=== PATIENT | male | born 1995 | race Caucasian/White ===

== ENCOUNTER 2023-07-29 18:12 | Emergency (ER) | payer BC, SELFPAY ==
--- NOTE | ~2023-07-29 | CT_ITS ---
EXAMINATION: CT brain wo con DATE: 07/29/2023 20:08 INDICATION: Seizure. TECHNIQUE: Computed tomography (CT) of the head was performed without intravenous contrast. The mA wa s adjusted according to patient size. Iterative reconstruction technique was employed. The dose-lengt h product was 681.00 mGy-cm. COMPARISON: None FINDINGS: There is no intracranial hemorrhage, acute infarction, or abnormal intracranial mass lesion . The ventricles are normal in size. There is mild mucosal thickening in the paranasal sinuses. The m astoid air cells are normal. The orbits are normal. Partially visualized is a 1.7 x 1.0 cm cyst in ri ght cheek. IMPRESSION: 1. Normal brain. Reviewed, dictated and finalized at location E. IMPRESSION: 1. Normal brain.
--- NOTE | ~2023-07-29 | CT_ITS ---
EXAMINATION: CT abdomen pelvis w con DATE: 07/29/2023 18:58 INDICATION: Generalized abdominal pain. Nausea, vomiting, and diarrhea. TECHNIQUE: Computed tomography (CT) of the abdomen and pelvis was performed with 100 mL Omnipaque 350 intravenous contrast. Automated exposure control and iterative reconstruction technique were employe d. The dose-length product was 387.78 mGy-cm. COMPARISON: None. FINDINGS: The visualized portions of the lung bases are clear without pneumonia or pleural effusion. The heart size is normal. No pericardial effusion. The liver, gallbladder, spleen, pancreas, adrenal glands, and kidneys are normal. There are no dilated loops of bowel. The appendix is normal. There ar e no pathologically enlarged lymph nodes. There is no free intraperitoneal fluid. There is mild lumba r spondylosis. IMPRESSION: 1. No etiology for the patient's symptoms. Reviewed, dictated and finalized at location E.
[2023-07-29 18:20] VITALS: BP 130/76; PULSE 62; RESP 12; TEMP 36.5; O2SAT 100
--- NOTE | 2023-07-29 18:28 | ED.NAVMDI ---
HPI - Nausea/Vomiting/Diarrhea General Chief complaint: Nausea/Vomiting/Diarrhea Stated complaint: vomiting Time Seen by Provider: 07/29/23 18:16 History of Present Illness HPI Narrative: 28-year-old male presents to emergency department for generalized abdominal pain, nausea, vomiting and diarrhea that started at 4:00 a.m. this morning. Patient's is at bedside to assist with history. States she and her daughter currently sick with the same illness. The patient is reporting diffuse abdominal tenderness, multiple episodes of soft and watery stools today multiple episodes of emesis. Denies known fever, cough or congestion, dysuria or hematuria. Last bowel movement was prior to arrival. Endorses a prior history of a hernia repair otherwise no abdominal surgeries. Patient and are also concerned the patient has been having seizures throughout the day. Patient endorses a remote history of seizures. States he was evaluated by a neurologist many years ago and was on an unknown antiepileptic but discontinued this 6 years ago given he has not has seizure in 6 years. Patient and state that the patient has intermittent shakiness throughout his body. He does not lose consciousness, no tongue biting or incontinence, no postictal state. Denies alcohol or drug use, recent head injury or trauma. Nursing staff witnessed a seizure after bringing the patient back into the room. States they saw the patient flex his knees multiple times while standing, lasted a few seconds then the patient laid on the exam bed. No LOC, no postictal phase. Related Data Allergies Allergy/AdvReac Type Severity Reaction Status Date / Time No Known Allergies Allergy Unverified 11/23/12 11:15 Review of Systems Review of Systems: CONSTITUTIONAL: Denies fever, chills, or sweats. EYES: Denies visual changes, redness, or discharge. ENT: Denies rhinorrhea, congestion, sore throat, or otalgia. CARDIOVASCULAR: Denies chest pain, palpitations, or edema. RESPIRATORY: Denies cough or dyspnea. GASTROINTESTINAL: Denies abdominal pain, nausea, vomiting, or diarrhea. GENITOURINARY: Denies dysuria or hematuria. SKIN: Denies rash or itching. MUSCULOSKELETAL: Denies back pain, joint pain, or myalgia. NEUROLOGIC: See HPI PSYCHIATRIC: Denies anxiety or depression. Exam Narrative: GENERAL: Well-appearing, well-nourished, and in no acute distress. HEAD: Normocephalic, atraumatic. EYES: PERRLA and EOMI. ENT: Nares clear, no rhinorrhea or epistaxis. Mucous membranes moist. NECK: Supple. CHEST: Clear to auscultation. No respiratory distress. HEART: Regular rate and rhythm. No murmur heard. Normal peripheral pulses. ABDOMEN: Soft, nontender, nondistended, normal active bowel sounds. No rebound, guarding rigidity. No CVA tenderness. EXTREMITIES: Normal range of motion. No edema. SKIN: Warm, dry, no rash. NEURO: No focal deficits. Alert and oriented x3. Cranial nerves 2-12 intact. Strength 5/5 BUE and BLE. Sensation intact throughout. Normal [id number]. No pronator drift. Course Vital Signs Vital signs: Vital Signs Temperature 97.7 F 07/29/23 18:20 Pulse Rate 62 07/29/23 18:20 Respiratory Rate 12 07/29/23 18:20 Blood Pressure 130/76 07/29/23 18:20 Pulse Oximetry 100 07/29/23 18:20 Oxygen Delivery Room Air 07/29/23 18:20 Temperature 97.7 F 07/29/23 18:20 Pulse Rate 79 07/29/23 19:14 Respiratory Rate 17 07/29/23 19:14 Blood Pressure 126/67 07/29/23 19:14 Pulse Oximetry 99 07/29/23 19:14 Oxygen Delivery Room Air 07/29/23 18:20 MDM - Nausea/Vomiting/Diarrhea MDM Narrative Medical decision making narrative: 28-year-old male with a reported history of remote seizures presents to emergency department for diffuse abdominal pain, nausea vomiting, diarrhea and reported seizures throughout the day. See HPI for further history. Triage vital stable. Patient is well-appearing, nontoxic on exam. Abdomen is soft and
[2023-07-29 18:31] LABS: Basophils Percent Auto 0.2 % (0.2-1.2); Hematocrit 46.6 % (42.0-52.0); Hemoglobin 16.2 g/dL (14.0-18.0); Immature Granulocyte Absolute 0.05 K/mm3 (0.00-0.031); Immature Granulocyte Percent A 0.3 % (0-0.5); Lymphocytes Absolute Auto 0.38 K/mm3 (0.9-3.2); Lymphocytes Percent Auto 2.3 % (18.3-44.2); Mean Corpuscular HGB Conc 34.8 g/dl (32-36); Mean Corpuscular Hemoglobin 30.7 pg (26-34); Mean Corpuscular Volume 88.3 fl (80-100); Mean Platelet Volume 9.6 fl (7.4-10.4); Monocytes Absolute Auto 0.7 K/mm3 (0.1-0.6); Neutrophils Absolute Auto 15.2 K/mm3 (1.3-6.7); Neutrophils Percent Auto 93.2 % (45.5-73.1); Platelet Count Result 290 k/mm3 (150-375); Red Blood Count 5.28 M/mm3 (4.6-6.20); Red Cell Distribution Width 12.5 % (11.5-14.5); White Blood Count 16.3 K/mm3 (4.5-10.0)
[2023-07-29] MEDS: SODIUM CHLORIDE 0.9% IV 1,000 ML 999 ML IV CONT (18:37)
[2023-07-29] MEDS: ONDANSETRON INJ 4 MG/2 ML VIAL IV PUSH (18:37)
[2023-07-29] MEDS: FAMOTIDINE 20 MG/2 ML VIAL IV PUSH (18:37)
[2023-07-29 18:41] LABS: Alanine Aminotransferase 31 U/L (6-50); Albumin Level 5.2 g/dL (3.5-5.1); Alkaline Phosphatase 95 U/L (38-126); Anion Gap 14 mmol/L (4-12); Aspartate Amino Transferase 30 U/L (17-59); Bilirubin,Total 0.9 mg/dL (0.2-1.3); Blood Urea Nitrogen 18 mg/dL (9-20); Carbon Dioxide 23 mmol/L (22-30); Chloride 105 mmol/L (98-107); Estimated CRCL calculation 99 ml/min; Estimated Glomerular Filt Rate > 60; Glucose 141 mg/dL (65-110); Lipase 38 U/L (23-300); Potassium 3.9 mmol/L (3.4-5.0); Sodium 142 mmol/L (137-145)
[2023-07-29 19:00] LABS: Lactic Acid Reflex 2.2 mmol/L (0.7-2.0)
[2023-07-29 19:04] LABS: Creatine Kinase 187 U/L (55-170); Magnesium 2.1 mg/dL (1.6-2.3)
[2023-07-29 19:14] VITALS: BP 126/67; PULSE 79; RESP 17; O2SAT 99
[2023-07-29 19:27] LABS: Influenza A QL RT-PCR Negative (Negative); Influenza B QL RT-PCR Negative (Negative); RSV RNA, RT-PCR Negative (Negative); SARS-CoV-2 RNA PCR Negative (Negative)
[2023-07-29 20:59] LABS: Appearance Urine Clear (Clear); Bilirubin Urine Negative (Negative); Blood Urine Trace (Negative); Color Urine Light Yellow (Yellow); Glucose Urine UA Negative (Negative); Ketones Urine Negative (Negative); Nitrate Urine Negative (Negative); Protein Urine 1+ mg/dL (Negative); Specific Grav Ur < 1.005 (1.001-1.035)
[2023-07-29 21:00] LABS: Leukocyte Esterase Ur Negative LEU/UL (Negative); Urobilinogen Urine 0.2 mg/dL (<2.0)
[2023-07-29 21:04] LABS: Add Urine Microscopic? YES; RBC Urine 0-2 /hpf (0-2); WBC Urine 0-3 /hpf (0-3)
[2023-07-29 21:15] VITALS: BP 105/48; PULSE 64; RESP 18; O2SAT 100
[2023-07-29 21:47] LABS: Reflex Lactic Acid Yes or No Add Lactic
== END 2023-07-29 21:15 | disposition home or self-care (01) ==
PROVIDERS: Emergency Provider Physician Assistant
DX: K52.9 Noninfective gastroenteritis and colitis, unspecified (principal); Z20.822 Contact with and (suspected) exposure to COVID-19
CPT/HCPCS: 36415; 70450; 74177; 80053; 81001; 82550; 83605; 83690; 83735; 85025; 87637; 96361; 96374; 96375; 99284; J2405; J7030; Q9967

== ENCOUNTER 2024-12-17 14:18 | Emergency (ER) | payer BC, SELFPAY ==
[2024-12-17 14:26] VITALS: BP 116/76; PULSE 85; RESP 18; TEMP 36.6; O2SAT 100
--- NOTE | 2024-12-17 14:31 | ED_ITS ---
HPI - General Adult General Chief complaint: Skin/Abscess/Foreign Body Stated complaint: bleach in face Time Seen by Provider: 12/17/24 14:31 Source: patient, RN notes reviewed and old records reviewed Mode of arrival: ambulatory Limitations: no limitations History of Present Illness HPI narrative: 29-year-old male presents to the [facility] with concerns of being ?doused in bleach. ?. Patient states that they are cleaning the water tower in [place] and was walking by and was sprayed by the chicken and fish cleaner that the use. Denies any skin burning. Denies any eye irritation, no redness. States that he did wash up at work. Still wearing the same clothes that he was wearing. No bleach stains noted Denies any chest pain or shortness of breath. No difficulty breathing. No no lip or tongue swelling. Related Data Allergies Allergy/AdvReac Type Severity Reaction Status Date / Time No Known Allergies Allergy Verified 12/17/24 14:25 Review of Systems Review of Systems: All systems reviewed & are unremarkable except as noted in HPI and below Constitutional: Constitutional: Reports no additional constitutional complaints ENT: Reports system reviewed and no additional complaints, except as documented Cardiovascular: Cardiovascular: Reports no additional cardiovascular complaints, Denies chest pain and Denies dyspnea Respiratory: Respiratory: Reports no additional respiratory complaints, Denies chest congestion, Denies cough and Denies dyspnea Musculoskeletal: Musculoskeletal: Reports no additional musculoskeletal complaints Integumentary/Breasts: Skin/Breast: Reports system reviewed and no additional complaints, except as docu PMFSH Comments At the time of my signature, I reviewed and agree with the nursing past medical, surgical, social, and family history. There is no relevant family history pertinent to the patient complaint. Exam 2 Const: General: cooperative, healthy appearing, comfortable, no acute distress, well developed, alert and well nourished Nutritional Appearance: well nourished Orientation/consciousness: patient oriented x3 Limitations: no limitations HENMT: Head: normal to inspection Ears: hearing grossly normal bilaterally and external ears normal Mouth: Yes Normal oral and palatal mucosa present, Yes lip normal, Yes tongue normal and Yes moist mucous membranes Throat: posterior oropharynx normal, uvula midline and no uvular edema Eyes: General: appearance normal, both eyes and all related structures Alignment and Position: alignment normal Eyelids: eyelids normal Conjunctivae: conjunctivae normal Neck: Neck: normal visual inspection, full ROM, no lymphadenopathy and no meningeal signs Chest: Chest palpation & inspection: normal inspection of the chest Resp: Effort & Inspection: normal respiratory effort and able to speak in complete sentences Auscultation: clear to auscultation bilaterally, no crackles, no rales, no rhonchi and no wheezes Cardio: Rate: regular rate Skin: General skin exam: normal color and no rashes or lesions noted Neuro: General: patient oriented x3, gait normal, moves all extremities and no meningeal signs Cognition (Neuro): normal cognition Speech: normal speech Gait exam (Neuro): Normal gait present Extrem: General: normal to inspection, full ROM, capillary refill normal and normal gait Psych: Appearance: grossly normal and well kempt Mental Status: mental status grossly normal Speech and movement: Normal speech and movement present and Clear speech present Affect: normal affect Attitude: cooperative Course Course Emergency Course: Called [facility], spoke with Sharron from the [facility]. She called the company that is cleaning the water tower. Reports that they were using a diluted bleach spray. MSDS was sent. Patient rinsed face under sink for 15 minutes. Patient with no skin irritation. No eye redness. No tearing. No difficulty breathing. Level of Care: Express Care Visit Vital Signs Vital signs: Vital Signs Temperature 97.8 F 12/17/24 14:26 Pulse Rate 85 12/17/24 14:26 Respiratory Rate 18 12/17/24 14:26 Blood Pressure 116/76 12/17/24 14:26 Pulse Oximetry 100 12/17/24 14:26 Oxygen Delivery Room Air 12/17/24 14:26 Temperature 97.8 F 12/17/24 14:26 Pulse Rate 85 12/17/24 14:26 Respiratory Rate 18 12/17/24 14:26 Blood Pressure 116/76 12/17/24 14:26 Pulse Oximetry 100 12/17/24 14:26 Oxygen Delivery Room Air 12/17/24 14:26 Reviewed Medical Decision Making MDM Narrative Medical decision making narrative: Patient sitting comfortably in exam room. Nontoxic, vitals stable. Patient in no acute distress Patient presents after getting sprayed by the chicken and fish cleaner that they were cleaning a near by water tower. Patient with no signs or symptoms. No skin irritation, no eye irritation. No difficulty breathing. No redness to the eyes or skin. Does not smell of bleach. Did patient irrigate face in sync. Received MSDS Patient with diluted bleach spray. Will cover with an antibiotic eyedrop to reduce infection but encourage patient to continue rinsing. Discussed in great detail the signs and symptoms to proceed to the emergency room which he verbalized understanding. Discharge instructions reviewed with patient, as well as provided in writing per nursing staff. The instructions also include specific and strict return/GO TO THE ER as well as f/u information. All questions have been answered, and the patient deny any further questions with discharge and discharge plan. Some parts of this dictation were generated by voice recognition software and may contain typographical and/or grammatical inaccuracies. Medical Records Medical records reviewed: Yes I reviewed the external patient's medical records. Vital Signs Vital Signs: Vital Signs Temperature 97.8 F 12/17/24 14:26 Pulse Rate 85 12/17/24 14:26 Respiratory Rate 18 12/17/24 14:26 Blood Pressure 116/76 12/17/24 14:26 Pulse Oximetry 100 12/17/24 14:26 Oxygen Delivery Room Air 12/17/24 14:26 Temperature 97.8 F 12/17/24 14:26 Pulse Rate 85 12/17/24 14:26 Respiratory Rate 18 12/17/24 14:26 Blood Pressure 116/76 12/17/24 14:26 Pulse Oximetry 100 12/17/24 14:26 Oxygen Delivery Room Air 12/17/24 14:26 Reviewed Lab Data Lab results reviewed: Yes I reviewed the patient's lab results. Labs: Reviewed Critical Care Time Critical Care Time Critical Care Time: No Discharge Plan Discharge Clinical Impression: Accidental exposure to bleach Patient Disposition: Home Condition: Stable Instructions: Antibiotic Form, Chemical Skin Burn (ED) Additional Instructions: Shower, sure to continually rinse your skin and be sure to wash her clothes. Use eye drops to reduce the chances of an infection If you develop chest pain, shortness of breath, drip cool T breathing please go directly to the emergency room Patient Language: Armenian Prescriptions: New ofloxacin 0.3 % drops 1 drp EACH EYE QID 5 Days Qty: 5 0RF Follow-up/Referrals: PHYSICIAN,SENIOR LEAD [employer] DEVELOPER [Primary Care Provider, Internal Medicine] Stand Alone Forms: Work/School Release IP Time of Disposition: 14:58
--- NOTE | 2024-12-17 15:14 | PC.NURSE ---
1435- contact made with [facility] [employer] de[facility] and they are calling the company doing the washing, to find out what substance is in the cleaning fluid. they will call us back.
--- NOTE | 2024-12-17 15:16 | PC.NURSE ---
1436- we have pt flushing right eye and right side of face in the sink with lukewarm water at present.
--- NOTE | 2024-12-17 15:21 | PC.NURSE ---
[facility] and they said that it was a diluted bleach spray and they will attempt to get ahold of the msds sheet to fax us, but they said that it is a flush for 15 mins with tap water that the container says.
== END 2024-12-17 15:08 | disposition home or self-care (01) ==
PROVIDERS: Emergency Provider Nurse Practitioner
DX: T59.4X1A Toxic effect of chlorine gas, accidental (unintentional), initial encounter (principal)
CPT/HCPCS: 99213; G0463